=== PATIENT | female | born 2000 | race Caucasian/White ===

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

== ENCOUNTER 2018-01-24 18:21 | Emergency (ER) | payer BC, OTHER ==
[~2018-01-24] VITALS: Ht 151.1 cm; Wt 70.8 kg
[~2018-01-24 18:21] MED LIST changes: +BCPILLS PO; +CLR10 PO
[2018-01-24 18:38] VITALS: TEMP 36.9; Ht 151.1 cm; Wt 70.8 kg
[2018-01-24] MEDS ORDERED: ZLF/50 PO (19:20)
[2018-01-24] MEDS ORDERED: SERT1TAB88 PO (19:20)
[2018-01-24] MEDS ORDERED: MRLP527 PO (19:20)
--- NOTE | 2018-01-24 19:49 | DIAGNOSTIC IMAGING REPORT ---
CHEST 2 VIEWS ROUTINE CLINICAL HISTORY: Flu like. Cough. Fever. Cough. Dyspnea. COMPARISON STUDY: 10/25/2015 FINDINGS: The bones soft tissues and hemidiaphragms are normal. The cardiomediastinal silhouette is normal. The lungs are clear. The pulmonary vasculature is normal. IMPRESSION: Negative chest. The above report was generated using voice recognition software. It may contain grammatical, syntax or spelling errors. Electronically signed by: Robert Raymond M.D. 01/24/2018 7:48 PM Dictated Date/Time: 01/24/2018 7:48 PM
[2018-01-24 20:09] LABS: INFLUENZA B ANTIGEN Neg for Influ B (NEG)
[2018-01-24 20:36] VITALS: BP 125/81; PULSE 96; O2SAT 98
--- NOTE | 2018-01-25 15:22 | EMERGENCY ROOM VISIT NOTE ---
History First contact with patient: 18:40 Chief Complaint: FLU LIKE SX Stated Complaint: BODY ACHES, LOW GRADE FEVER,THOAT,EARS,GLANDS History of Present Illness The patient is a 17 year old female who presents to the Emergency Room with complaints of sore throat, low-grade fever, and ear pain for the past 1-2 days. The patient considers herself usually a healthy and has been trying Sudafed 2 doses without significant improvement of her symptoms. The patient is around young children throughout the week, and believes that she may have gotten something from them. She is not having difficulty breathing or abdominal pain. She states the fever has been low-grade, less than 100F. No Tylenol or Advil has been used. She rates her current discomfort a 4/10 that worsens when she swallows. Review of Systems More than 10 systems were reviewed and otherwise negative with the exception of history of present illness. Past Medical/Surgical History Medical Problems: (1) Pneumonia (2) Right leg injury (3) Scoliosis Family History Cancer Diabetes mellitus Gallbladder disease Hypertension Social History Smoking Status: Never Smoker Alcohol Use: none Drug Use: none Marital Status: single Housing Status: lives with family Occupation Status: student Current/Historical Medications Scheduled Control Pills ( Control Pills), 1 TAB PO DAILY Loratadine (Claritin), 10 MG PO DAILY Polyethylene (Polyethylene Glycol 3350), 17 GM PO DAILY Sertraline HCl (Sertraline HCl), 25 MG PO QAM Sertraline HCl (Sertraline HCl), 50 MG PO QAM Physical Exam Vital Signs Date Time Temp Pulse Resp B/P (MAP) Pulse Ox O2 Delivery O2 Flow Rate FiO2 01/24/18 20:36 96 20 125/81 98 01/24/18 18:38 36.9 98 20 147/85 97 Room Air Physical Exam VITALS: Vitals are noted on the nurse's note and reviewed by myself. Vital signs stable. GENERAL: Well-developed, well-nourished, white female, who is in no acute distress and resting comfortably. Patient is cooperative with the examination. HEAD: Normocephalic atraumatic. EARS: External ear normal. External auditory canals clear, tympanic membranes pearly ontiveros without erythema or effusion bilaterally. EYES: Pupils equal round and reactive to light and accommodation. Conjunctivae without injection, sclerae without icterus. Extraocular movements intact. NOSE: Patent, turbinates without inflammation or discharge. MOUTH: Mucous membranes moist. Tonsils are not enlarged. Pharynx without erythema, blood, or exudate. Uvula midline. Airway patent. NECK: Supple without nuchal rigidity. No lymphadenopathy. No thyromegaly. Cervical spine is nontender. HEART: Regular rate and rhythm without murmurs gallops or rubs. LUNGS: Clear to auscultation bilaterally without wheezes, rales or rhonchi. No retractions or accessory muscle use. Medical Decision & Procedures ER Provider Diagnostic Interpretation: CHEST 2 VIEWS ROUTINE CLINICAL HISTORY: Flu like. Cough. Fever. Cough. Dyspnea. COMPARISON STUDY: 10/25/2015 FINDINGS: The bones soft tissues and hemidiaphragms are normal. The cardiomediastinal silhouette is normal. The lungs are clear. The pulmonary vasculature is normal. IMPRESSION: Negative chest. Laboratory Results Test 01/24/18 19:25 Influenza Type A Antigen Neg for Influ A (NEG) Influenza Type B Antigen Neg for Influ B (NEG) ED Course Physical exam and history were performed. Nursing notes, EMR, and Medication List were personally reviewed. Patient appears to have a sore throat and flulike symptoms for the past several days. On examination she does not appear toxic. A rapid strep was performed and was negative. A culture was sent to the lab. After this influenza swabbing was performed and a chest x-ray was gathered. Chest x-ray was reviewed by myself and radiology showing no acute process. Her influenza swabs were negative. Overall the patient appears well for discharge home. I suspect her symptoms are viral in nature and should improve given time and conservative care. She is to follow with her primary care physician for further care and management. She was otherwise invited back to the ER with any new, worsening, or concerning symptoms. The chart was completed utilizing [employer] Voice Recognition Software. Grammatical errors, random word insertions, pronoun errors, and incomplete sentences are an occasional consequence of this system due to software limitations, ambient noise, and hardware issues. Any formal questions or concerns about the content, text, or information contained within the body of this dictation should be directly addressed to the provider for clarification. . Medical Decision Differential diagnosis: Etiologies such as viral syndrome, otitis, pharyngitis, pneumonia, influenza, meningitis, urinary tract infection, sepsis, bacteremia, as well as others were entertained. Impression Primary Impression: Influenza-like symptoms Departure Information Dispostion Home / Self-Care Condition GOOD Forms HOME CARE DOCUMENTATION FORM, School Instructions, Additional Instructions: Patient was seen and evaluated today in the emergency department fo medical care. Return to school on 01/25/2018. Please excuse. IMPORTANT VISIT INFORMATION Patient Instructions My [facility] [address] Additional Instructions You were seen and evaluated today on an emergency basis only. This is not a substitute for, or an effort to provide, complete comprehensive medical care. It is not possible to recognize and treat all injuries or illnesses in a single emergency department visit. For this reason it is recommended that you followup with your primary care physician this week with any ongoing or persisting symptoms. For baseline pain relief you may alternate ibuprofen and acetaminophen every 4 hours for pain control. Take 600 mg ibuprofen (Advil) and then 4 hours later take 1000 mg acetaminophen (Tylenol). Do not take more than 3000 mg acetaminophen in a single day. You are welcome to return to the emergency department anytime with new, worsening, or concerning symptoms. School Instructions Additional School Instructions: Patient was seen and evaluated today in the emergency department for medical care. Return to school on 01/25/2018. Please excuse.
== END 2018-01-24 20:37 | disposition home or self-care (01) ==
LOC: C.EDB 18:24 → C.EDD 20:37
DX: J02.9 Acute pharyngitis, unspecified (principal); R50.9 Fever, unspecified; H92.09 Otalgia, unspecified ear; M41.9 Scoliosis, unspecified; Z79.3 Long term (current) use of hormonal contraceptives

== ENCOUNTER → 2018-03-04 | Outpatient (CLI) | payer OTHER ==
[~2018-03-04] MED LIST changes: +MRLP527 PO; -POLY335019 PO; +SERT1TAB88 PO; -SERT50TA PO; +ZLF/50 PO
[2018-03-04 11:44] LABS: HEMOGLOBIN A1C 5.6 % (4.5-5.6)
[2018-03-04 11:53] LABS: ALBUMIN 3.7 gm/dl (3.4-5.0); ALT/SGPT 40 U/L (12-78); BLOOD UREA NITROGEN 8 mg/dl (7-18); CALCIUM 8.8 mg/dl (8.5-10.1); CARBON DIOXIDE 27 mmol/L (21-32); CHOLESTEROL 162 mg/dl (0-200); CREATININE 0.68 mg/dl (0.60-1.20); GLUCOSE 83 mg/dl (70-99); POTASSIUM 4.3 mmol/L (3.5-5.1); SODIUM 138 mmol/L (136-145)
[2018-03-04 12:01] LABS: ALKALINE PHOSPHATASE 125 U/L (45-117); AST/SGOT 22 U/L (15-37); LDL CHOLESTEROL CALCULATED 97 mg/dl; TOTAL PROTEIN 7.8 gm/dl (6.4-8.2)
== END | disposition home or self-care (01) ==
LOC: C.LAB 09:54
PROVIDERS: ATTEND Pediatrics
DX: K59.09 Other constipation (principal); Z68.30 Body mass index [BMI] 30.0-30.9, adult